=== PATIENT | female | born 1965 | race Caucasian/White ===

== ENCOUNTER 2018-11-10 14:18 | Emergency (ER) | payer MEDICARE, MEDICAID ==
[2018-11-10 14:39] VITALS: RESP 18; TEMP 98.1
--- NOTE | 2018-11-10 15:16 | ED PDOC ---
HPI: Abdomen Time Seen by Provider: 11/10/18 14:46 Chief Complaint (Nursing): Abdominal Pain Chief Complaint (Provider): abdominal pain History Per: Patient History/Exam Limitations: no limitations Onset/Duration Of Symptoms: Hrs (07:00), Intermittent Episodes (for months) Current Symptoms Are (Timing): Still Present Quality Of Discomfort: Burning Associated Symptoms: Nausea. denies: Fever, Chills, Vomiting, Diarrhea, Back Pain Additional Complaint(s): Holly Ferreira is a 53 year old female, with a past medical history of diabetes, HTN, hypercholesterolemia and asthma, who presents to the emergency department complaining of an intermittent abdominal pain onset for a couple of weeks but constant since 07:00 this morning. Patient states pain is associated with nausea and describes it as a burning sensation, but it does not radiate to the back. Patient has been compliant with her medications. She denies any vomiting, diarrhea, fever or chills. No further medical complaints. 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), Diabetes (type II), HTN, Hyperlipidemia - Surgical History Surgical History: No Surg Hx - Family History Family History: States: Unknown Family Hx - Social History Current smoker - smoking cessation education provided: No Alcohol: None Drugs: Denies - Home Medications Home Medications: Ambulatory Orders Medication Instructions Recorded Albuterol 0.5% [Albuterol Sulfate 3 ml IH Q4 PRN #3 bottle 06/04/14 20 Ml] Albuterol HFA [Ventolin HFA 90 2 puff IH [id number] #1 pkt 06/04/14 mcg/actuation (8 g)] Insulin Aspart [Novolog FLEXPEN] 25 unit SC BID #3 packet 06/04/14 Levofloxacin [Levaquin] 500 mg PO DAILY #7 tab 06/04/14 guaiFENesin/Codeine 10 ml PO Q4 PRN #200 ml 08/24/14 [Codeine/Guaifenesin 10 MG/5 Ml-100 MG/5 Ml 5] Amoxicillin/Clavulanate [Augmentin 1 tab PO BID #14 tab 05/21/15 875 MG-125 MG] RX: Ibuprofen 600 mg PO Q8H PRN #60 tab 05/21/15 Ciprofloxacin/Hydrocortisone 3 drop OT BID #1 bottle 05/24/15 [Cipro Hc 0.2%-1% 10 ml] Oxycodone HCl/Acetaminophen 1 tab PO Q6 PRN #5 tab 05/24/15 [Percocet 325 mg-5 mg] Cyclobenzaprine [Cyclobenzaprine 10 mg PO TID #20 tab 02/01/16 HCl] Ibuprofen [Motrin] 600 mg PO Q6 #20 tab 02/01/16 Oxycodone HCl/Acetaminophen 1 tab PO Q4 #15 tab 02/01/16 [Percocet 325 mg-5 mg] Ibuprofen [Motrin] 600 mg PO Q6 #20 tab 07/23/16 oxyCODONE/Acetaminophen [Percocet 1 ea PO Q6 PRN #5 tab 07/23/16 5/325 mg Tab] Famotidine [Pepcid] 20 mg PO DAILY #14 tab 11/10/18 RX: Omeprazole 20 mg PO DAILY #30 capsule. 11/10/18 - Allergies Allergies/Adverse Reactions: Allergies Allergy/AdvReac Type Severity Reaction Status Date / Time No Known Allergies Allergy Verified 11/10/18 14:36 Review of Systems ROS Statement: Except As Marked, All Systems Reviewed And Found Negative Constitutional: Negative for: Fever, Chills Gastrointestinal: Positive for: Nausea, Abdominal Pain. Negative for: Vomiting, Diarrhea Musculoskeletal: Negative for: Back Pain Physical Exam - Reviewed Nursing Documentation Reviewed: Yes Vital Signs Reviewed: Yes - Physical Exam Appears: Positive for: No Acute Distress (comfortable. Mildly obese) Head Exam: Positive for: ATRAUMATIC, NORMAL INSPECTION, NORMOCEPHALIC Skin: Positive for: Normal Color, Warm, Dry Eye Exam: Positive for: Normal appearance, EOMI, PERRL ENT: Positive for: Normal ENT Inspection Neck: Positive for: Normal, Painless ROM Cardiovascular/Chest: Positive for: Regular Rate, Rhythm. Negative for: Murmur Respiratory: Positive for: Normal Breath Sounds. Negative for: Respiratory Distress Gastrointestinal/Abdominal: Positive for: Soft, Tenderness (epigastric ). Negative for: Distended, Guarding, Rebound, Other (Garcia's sign) Back: Positive for: Normal Inspection. Negative for: L CVA Tenderness, R CVA Tenderness, Vertebral Tenderness Extremity: Positive for: Normal ROM (upper and lower extremities). Negative for: Deformity, Swelling Neurologic/Psych: Positive for: Alert, Oriented - Laboratory Results Result Diagrams: 11/10/18 16:12 11/10/18 16:12 - ECG O2 Sat by Pulse Oximetry: 100 (RA) Pulse Ox Interpretation: Normal - Progress Re-evaluation Time: 19:30 Condition: Re-examined, Improved Medical Decision Making Medical Decision Making: Time: 14:46 Initial Impression: Abdominal pain and nausea. Differential includes acute gastritis, pancreatitis, cholecystitis and SBO. R/o appendicitis Initial Plan: --Abd Pelvis PO & IV Contrast [CT] --CMP --Lipase --Urine --Urine dipstick --CBC w/ differential --Maalox Plus 30 ml --Omnipaque 240 50 ml PO --Morphine 2mg IM --Morphine 2mg IM --Zofran Inj 4 mg IM --Reevaluation 18:22 Abdomen/Pelvis CT FINDINGS: LOWER THORAX: There appears to be some minor on passive/dependent type atelectasis both posterior lower lung rubio. No effusion or basilar pneumothorax. Heart size within range of normal.. Questionable trace pericardial effusion. There is a tiny hiatal hernia. LIVER: Liver is enlarged measuring approximately 19 cm in CC dimension. No obvious hepatic mass collection or calcification. GALLBLADDER AND BILE DUCTS: Gallbladder is physiologically distended. No evidence of intraluminal gallbladder calculi. PANCREAS: Pancreas appears slightly atrophic and fatty replaced. No obvious pancreatic masses collections or calcifications. No significant pancreatic ductal dilatation. SPLEEN: Spleen exhibits normal size and attenuation pattern. ADRENALS: Unremarkable. No mass. KIDNEYS AND URETERS: Unremarkable. No hydronephrosis. No solid mass. VASCULATURE: Unremarkable. No aortic aneurysm. No aortic atherosclerotic calcification or mural plaque present. BOWEL: Evaluation of the bowel is somewhat limited due to incomplete opacification. The stomach is incompletely distended with some partially opacified food debris liquid and air. There appear to be 1 or 2 mildly distended not nonspecific fluid-filled loops of small bowel in the left upper/mid abdomen that could repr esent a localized ileus. No evidence of acute mechanical small bowel obstruction with oral contrast material extending into the distal small bowel. The remaining visualized loops of small bowel exhibit normal contour and caliber. No evidence acute mechanical small bowel obstruction. There is a moderate amount of stool seen throughout the colon consistent with fecal retention/constipation. Scattered colonic diverticula are felt to be present. APPENDIX: Normal-appearing appendix. PERITONEUM: Unremarkable. No free fluid. No free air. LYMPH NODES: Unremarkable. No enlarged lymph nodes. BLADDER: The urinary bladder is incompletely distended which in part accounts for thick- walled appearance. Possibility of a cystitis not excluded. Correlation with urinalysis recommended REPRODUCTIVE: There are questionable cystic changes in the aspect of the pelvis which could represent cystic adnexa with peripheral hemorrhage or calcification versus a loop of partially opacified small bowel extending into the pelvis. Recommend follow-up pelvic ultrasound for further evaluation.. Uterus unremarkable. BONES: Mild multilevel degenerative spondylosis of the lower thoracic and lumbar spine. There are no acute compression fractures no retropulsed fragments. Vertebral bodies exhibit normal stature. OTHER FINDINGS: None. IMPRESSION: Hepatomegaly. Constipation. Scattered colonic diverticula without definitive radiographic evidence of acute diverticulitis. Questionable cystic changes right adnexa versus on partially opacified loops of us small bowel in the pelvis. Recommend follow-up pelvic ultrasound for further evaluation. Questionable localized ileus left upper/mid abdomen. See above discussion for additional details and findings. Scribe Attestation: Documented by Fab Alvarez, acting as a scribe for Shikha Watson MD Provider Scribe Attestation: All medical record entries made by the Scribe were at my direction and personally dictated by me. I have reviewed the chart and agree that the record accurately reflects my personal performance of the history, physical exam, medical decision making, and the department course for this patient. I have also personally directed, reviewed, and agree with the discharge instructions and disposition. Disposition - Clinical Impression Clinical Impression: Abdominal pain in female, Ovarian cyst - Patient ED Disposition Is Patient to be Admitted: No Doctor Will See Patient In The: Hospital Counseled Patient/Family Regarding: Studies Performed, Diagnosis, Need For Foll owup - Disposition Referrals: Mikie Tidwell MD [Medical Doctor] - Florentino Aguirre MD, PhD [Staff Provider] - Disposition: Routine/Home Disposition Time: 19:30 Condition: GOOD Additional Instructions: HOLLY FERREIRA, thank you for letting us take care of you today. Your provider was Shikha Watson MD and you were treated for ABD PAIN. The emergency medical care you received today was directed at your acute symptoms. If you were prescribed any medication, please fill it and take as directed. It may take several days for your symptoms to resolve. Return to the Emergency Department if your symptoms worsen, do not improve, or if you have any other problems. Please contact your doctor or call one of the physicians/clinics you have been referred to that are listed on the Patient Visit Information form that is included in your discharge packet. Bring any paperwork you were given at discharge with you along with any medications you are taking to your follow up visit. Our treatment cannot replace ongoing medical care by a primary care provi jenniffer outside of the emergency department. Thank you for allowing the [facility] team to be part of your care today. If you had an X-Ray or CT scan: A Radiologist will review the ED reading if any change in treatment is needed we will contact you. If you had a blood, urine, or wound culture: It will take several days for the results, if any change in treatment is needed we will contact you. If you had an STI test: It will take 48 hours for the results. Please call after 1 week if you have not heard back. Prescriptions: Famotidine [Pepcid] 20 mg PO DAILY #14 tab RX: Omeprazole 20 mg PO DAILY #30 capsule.dr Instructions: Ovarian Cysts, Stomach Ache and Stomach Upset Forms: [employer] (Armenian)
[2018-11-10] MEDS ORDERED: Iohexol 240 (50 ml) PO ONE (15:26)
[2018-11-10] MEDS ORDERED: Morphine 4 MG/ML VIAL IVP STA (15:26)
[2018-11-10] MEDS ORDERED: Alum-Mag Hydrox-Simethicone Susp (30 mL) PO STA (15:26)
[2018-11-10] MEDS ORDERED: Morphine 5 MG/ML SYRINGE IM STA (15:40)
[2018-11-10] MEDS ORDERED: Alum-Mag Hydrox-Simethicone Susp (30 mL) ONE (15:45)
[2018-11-10] MEDS ORDERED: Morphine 4 MG/ML VIAL ONE (15:45)
[2018-11-10] MEDS ORDERED: Iohexol 240 (50 ml) ONE (15:55)
[2018-11-10 16:29] LABS: BASO # 0.1 K/uL (0.0-0.2); BASO % 0.6 % (0.0-2.0); EOS # 0.2 K/uL (0.0-0.7); EOS % 1.8 % (0.0-4.0); HEMOGLOBIN 12.8 g/dL (12.0-16.0); LYMPH # 2.6 K/uL (1.0-4.3); LYMPH % 26.7 % (20.0-40.0); MEAN CELL VOLUME 91.3 fl (81.0-99.0); MEAN CORPUSCULAR HEMOGLOBIN 29.8 pg (27.0-31.0); MEAN CORPUSCULAR HGB CONC 32.7 g/dL (33.0-37.0); MEAN PLATELET VOLUME 10.3 fl (7.2-11.7); MONO # 0.5 K/uL (0.0-0.8); MONO % 4.9 % (0.0-10.0); NEUT # 6.5 K/uL (1.8-7.0); NRBC % 0.1 % (0.0-0.0); RBC 4.29 Mil/uL (3.80-5.20); RED CELL DISTRIBUTION WIDTH 13.8 % (11.5-14.5); WHITE BLOOD COUNT 9.8 K/uL (4.8-10.8)
[2018-11-10 16:55] LABS: ALB/GLOB RATIO 1.2 (1.0-2.1); ALBUMIN 4.4 g/dL (3.5-5.0); ALT/SGPT 29 U/L (9-52); AST/SGOT 25 U/L (14-36); BLOOD UREA NITROGEN 12 mg/dl (7-17); CALCIUM 9.6 mg/dL (8.4-10.2); GFR NON-AFRICAN AMERICAN > 60; LIPASE 96 U/L (23-300)
[2018-11-10] MEDS ORDERED: Sodium Chloride 0.9% 50 ML IV ONE (17:29)
[2018-11-10] MEDS ORDERED: Iohexol 300 100 ML IJ ONE (17:29)
--- NOTE | 2018-11-10 18:25 | CT ---
Date of service: 11/10/2018 PROCEDURE: CT Abdomen and Pelvis with contrast HISTORY: abdominal pain COMPARISON: At right much rather [place] CT scan TECHNIQUE: Contrast dose: Radiation dose: Total exam DLP = 541.47 mGy-cm. This CT exam was performed using one or more of the following dose reduction techniques: Automated exposure control, adjustment of the mA and/or kV according to patient size, and/or use of iterative reconstruction technique. FINDINGS: LOWER THORAX: There appears to be some minor on passive/dependent type atelectasis both posterior lower lung rubio. No effusion or basilar pneumothorax. Heart size within range of normal.. Questionable trace pericardial effusion. There is a tiny hiatal hernia. LIVER: Liver is enlarged measuring approximately 19 cm in CC dimension. No obvious hepatic mass collection or calcification. GALLBLADDER AND BILE DUCTS: Gallbladder is physiologically distended. No evidence of intraluminal gallbladder calculi. PANCREAS: Pancreas appears slightly atrophic and fatty replaced. No obvious pancreatic masses collections or calcifications. No significant pancreatic ductal dilatation. SPLEEN: Spleen exhibits normal size and attenuation pattern. ADRENALS: Unremarkable. No mass. KIDNEYS AND URETERS: Unremarkable. No hydronephrosis. No solid mass. VASCULATURE: Unremarkable. No aortic aneurysm. No aortic atherosclerotic calcification or mural plaque present. BOWEL: Evaluation of the bowel is somewhat limited due to incomplete opacification. The stomach is incompletely distended with some partially opacified food debris liquid and air. There appear to be 1 or 2 mildly distended not nonspecific fluid-filled loops of small bowel in the left upper/mid abdomen that could represent a localized ileus. No evidence of acute mechanical small bowel obstruction with oral contrast material extending into the distal small bowel. The remaining visualized loops of small bowel exhibit normal contour and caliber. No evidence acute mechanical small bowel obstruction. There is a moderate amount of stool seen throughout the colon consistent with fecal retention/constipation. Scattered colonic diverticula are felt to be present. APPENDIX: Normal-appearing appendix. PERITONEUM: Unremarkable. No free fluid. No free air. LYMPH NODES: Unremarkable. No enlarged lymph nodes. BLADDER: The urinary bladder is incompletely distended which in part accounts for thick-walled appearance. Possibility of a cystitis not excluded. Correlation with urinalysis recommended REPRODUCTIVE: There are questionable cystic changes in the aspect of the pelvis which could represent cystic adnexa with peripheral hemorrhage or calcification versus a loop of partially opacified small bowel extending into the pelvis. Recommend follow-up pelvic ultrasound for further evaluation.. Uterus unremarkable. BONES: Mild multilevel degenerative spondylosis of the lower thoracic and lumbar spine. There are no acute compression fractures no retropulsed fragments. Vertebral bodies exhibit normal stature. OTHER FINDINGS: None. IMPRESSION: Hepatomegaly. Constipation. Scattered colonic diverticula without definitive radiographic evidence of acute diverticulitis. Questionable cystic changes right adnexa versus on partially opacified loops of us small bowel in the pelvis. Recommend follow-up pelvic ultrasound for further evaluation. Questionable localized ileus left upper/mid abdomen. See above discussion for additional details and findings.
[2018-11-10 20:00] VITALS: BP 148/83; PULSE 77
[2018-11-10 21:47] VITALS: O2SAT 100
== END 2018-11-10 19:59 | disposition home or self-care (01) ==
LOC: H.ER 14:18
DX: E11.9 Type 2 diabetes mellitus without complications (principal); E78.5 Hyperlipidemia, unspecified; I10 Essential (primary) hypertension; K59.00 Constipation, unspecified; N83.209 Unspecified ovarian cyst, unspecified side; Z79.4 Long term (current) use of insulin
CPT/HCPCS: 74176; 80053; 81025; 83690; 85025; 96372; 99285; J2270; J2405; Q9966